=== PATIENT | male | born 1955 | race Caucasian/White ===

== ENCOUNTER 2016-08-31 12:40 | Emergency (ER) | payer MEDICARE | END 2016-08-31 13:26 | disposition home or self-care (01) | LOC: ER 12:40 | DX: L03.113 Cellulitis of right upper limb (principal); W57.XXXA Bitten or stung by nonvenomous insect and other nonvenomous arthropods, initial encounter; F17.200 Nicotine dependence, unspecified, uncomplicated; Z79.899 Other long term (current) drug therapy | CPT/HCPCS: 99282 ==